=== PATIENT | male | born 1970 | race Caucasian/White ===

== ENCOUNTER 2022-07-15 10:20 | Emergency (ER) | payer OTHER ==
[~2022-07-15] VITALS: Ht 182.9 cm; Wt 68.0 kg
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
[2022-07-15 12:13] VITALS: BP 102/37
== END 2022-07-15 12:14 ==
LOC: ER FS 10:22
DX: M54.50 Low back pain, unspecified (principal); M53.3 Sacrococcygeal disorders, not elsewhere classified; V89.2XXA Person injured in unspecified motor-vehicle accident, traffic, initial encounter; Y92.410 Unspecified street and highway as the place of occurrence of the external cause
CPT/HCPCS: 72100; 72170; 72220